=== PATIENT | male | born 1995 | race Caucasian/White ===

== ENCOUNTER 2019-02-24 05:25 | Emergency (ER) | payer OTHER ==
--- NOTE | 2019-02-24 07:21 | RADIOLOGY REPORT (SQ) ---
EXAM DESCRIPTION: XR FOOT 3 OR MORE VIEWS COMPLETED DATE/TME: 02/24/2019 06:20 CLINICAL HISTORY: 23 years, Male, foot injury COMPARISON: None. FINDINGS: 3 views of the left foot. No acute fracture or dislocation. Tarsals and metatarsals are appropriately aligned. Normal osseous mineralization. IMPRESSION: 1. No acute fracture or dislocation. copyright 2010 [employer] [facility] [employer]- All Rights Reserved
[2019-02-24] MEDS ORDERED: CLINDAMYCIN 900 MG/D5W RTU 900 MG/50 ML RTUPB IV ONE (10:46)
[2019-02-24] MEDS ORDERED: DIPH/PERTUSS(ACELL)/TETANUS VAC/PF 0.5 ML SYR (>=10YO) IM ONE (10:50)
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
[2019-02-24 11:57] VITALS: BP 130/62
== END 2019-02-24 11:57 | disposition home or self-care (01) ==
LOC: ER 05:25
DX: L03.116 Cellulitis of left lower limb (principal); S90.812A Abrasion, left foot, initial encounter; X58.XXXA Exposure to other specified factors, initial encounter; R11.0 Nausea
CPT/HCPCS: 99283; 90471; 96365; 87040; 73630; 90715; J3490